=== PATIENT | male | born 1955 | race Caucasian/White ===

== ENCOUNTER → 2017-10-11 | Outpatient (CLI) | payer OTHER ==
[~2017-10-11] MED LIST: ASCO250T2 PO; ATOR80TA PO; CHOL100011 PO; MULT-658 PO
== END ==
LOC: STAR 15:39
PROVIDERS: ATTEND Internal Medicine
DX: Z01.818 Encounter for other preprocedural examination (principal); K63.5 Polyp of colon
CPT/HCPCS: 93005

== ENCOUNTER 2017-10-16 07:56 | Day surgery (SDC) | payer OTHER ==
[~2017-10-16] VITALS: Ht 188 cm; Wt 89.2 kg
[2017-10-16] MEDS ORDERED: LIDOCAINE 1%, 2ML ONE (08:09)
[2017-10-16] MEDS ORDERED: LACTATED RINGERS 1,000 ML IV SCH (08:25)
[2017-10-16] MEDS ORDERED: LIDOCAINE 1%, 2ML SQ PRN (08:30)
[2017-10-16] MEDS ORDERED: LIDOCAINE-MPF 2% ,5ML ONE (08:31)
[2017-10-16] MEDS ORDERED: PROPOFOL 10 MG/ML, 20ML ONE ×3 (08:31→09:31)
[2017-10-16] MEDS ORDERED: ONDANSETRON 2MG/ML, 2ML ONE (09:17)
[2017-10-16] MEDS ORDERED: EPINEPHRINE SYRINGE 0.1 MG/ML, 10ML ONE (09:19)
== END 2017-10-16 10:45 | disposition home or self-care (01) ==
LOC: OUT 07:56
PROVIDERS: ATTEND Internal Medicine
DX: D12.0 Benign neoplasm of cecum (principal); E78.5 Hyperlipidemia, unspecified; Z90.49 Acquired absence of other specified parts of digestive tract; Z72.89 Other problems related to lifestyle; F17.210 Nicotine dependence, cigarettes, uncomplicated; Z82.49 Family history of ischemic heart disease and other diseases of the circulatory system
CPT/HCPCS: 45381; 45385; 88305; J2405; J2704; J3490; J7120

== ENCOUNTER 2018-01-01 05:29 | Day surgery (SDC) | payer OTHER ==
[~2018-01-01] VITALS: Ht 188 cm; Wt 89.9 kg
[2018-01-01] MEDS ORDERED: LACTATED RINGERS 1,000 ML IV SCH (06:03)
[2018-01-01 06:31] VITALS: BP 108/72
[2018-01-01] MEDS ORDERED: PROPOFOL 50 ML ONE ×2 (07:11→08:29)
[2018-01-01] MEDS ORDERED: MIDAZOLAM 1 MG/ML, 2ML ONE (07:11)
[2018-01-01] MEDS ORDERED: INDOCYANINE GREEN 25 MG VIAL ONE (07:38)
[2018-01-01] MEDS ORDERED: EPHEDRINE 50 MG/ML, 1ML IVPush PRN (08:30)
[2018-01-01] MEDS ORDERED: KETOROLAC 30 MG/1 ML IV PRN (08:30)
[2018-01-01] MEDS ORDERED: ALBUTEROL/IPRATROPIUM 2.5MG/0.5MG, 3 ML NPPB PRN (08:30)
[2018-01-01] MEDS ORDERED: PROMETHAZINE 25 MG/ML, 1ML IV PRN (08:30)
[2018-01-01] MEDS ORDERED: MEPERIDINE/PF 25MG/0.5ML IVPush PRN (08:30)
[2018-01-01] MEDS ORDERED: DIAZEPAM 5 MG/ML, 2ML IVPush PRN (08:30)
[2018-01-01] MEDS ORDERED: FENTANYL PF 100 MCG/2ML IV PRN (08:30)
[2018-01-01] MEDS ORDERED: ACETAMINOPHEN 325 MG TABLET PO PRN (08:30)
[2018-01-01] MEDS ORDERED: ALBUTEROL SULFATE 2.5 MG/3 ML NPPB PRN (08:30)
[2018-01-01] MEDS ORDERED: ONDANSETRON 2MG/ML, 2ML IVPush PRN (08:30)
[2018-01-01] MEDS ORDERED: HYDROcodone/APAP 7.5-325MG/15ML UDC PO PRN (08:30)
[2018-01-01] MEDS ORDERED: MIDAZOLAM 1 MG/ML, 2ML IV PRN (08:30)
[2018-01-01] MEDS ORDERED: PROMETHAZINE 12.5 MG SUPP PR PRN (08:30)
== END 2018-01-01 10:30 | disposition home or self-care (01) ==
LOC: OUT 05:29
PROVIDERS: ATTEND Internal Medicine Geriatric Medicine
DX: D12.0 Benign neoplasm of cecum (principal); D12.2 Benign neoplasm of ascending colon; D12.3 Benign neoplasm of transverse colon; K63.5 Polyp of colon
CPT/HCPCS: 45380; 45381; 45385; 88305; J2250; J2704; J7120